=== PATIENT | female | born 1935 | race Caucasian/White ===

== ENCOUNTER 2018-04-09 16:38 | Observation (INO) | payer OTHER ==
--- NOTE | 2018-04-09 16:59 | RAD REPORT ---
EXAM DESCRIPTION: CT - Head Brain Wo Cont - 04/09/2018 4:51 pm CLINICAL HISTORY: Fall, head injury COMPARISON: None. TECHNIQUE: Axial 5 mm thick images of the head were obtained without IV contrast. All CT scans are performed using dose optimization technique as appropriate and may include automated exposure control or mA/KV adjustment according to patient size. FINDINGS: No intracranial hemorrhage, mass, edema or shift of mid-line structures. No acute infarcti on changes seen. Atrophy and chronic ischemic changes are present mild for age. Ventricles are in pro portion. Arterial and physiologic calcifications are present. Mastoid air cells and visualized portions of the paranasal sinuses are clear. No acute bony findings. IMPRESSION: Negative non-contrast CT head examination for acute finding. Mild atrophy and chronic i schemic changes are present.
--- NOTE | 2018-04-09 17:14 | RAD REPORT ---
EXAM DESCRIPTION: RAD - Chest Single View - 04/09/2018 5:01 pm CLINICAL HISTORY: Difficulty breathing, transient alteration of awareness, cough COMPARISON: February 2009 TECHNIQUE: AP portable chest image was obtained 1659 hour . FINDINGS: Fibrotic changes are present throughout the lung almeida. Interstitial pattern is increased from the prior study. This is a long interval and could be progressive fibrosis or a minimal interst itial edema or infiltrate. No focal area of consolidation to localize a bacterial pneumonia. Heart and vasculature are normal. No measurable pleural effusion and no pneumothorax. No acute bony abnormality seen. No acute aortic findings suspected. IMPRESSION: Prominent interstitial markings throughout the lung almeida increased in prominence since the remote 2008 comparison. Interval change may be progressive fibrosis or could indicate an interstitial edema or infiltrate. No focal consolidation to indicate bacterial pneumonia.
[2018-04-09 17:26] LABS: Protime INR 0.98
[2018-04-09 17:33] LABS: Absolute Lymphocytes (CBC) 3.1 K/uL (0.7-4.9); Absolute Monocytes 0.7 K/uL (0.1-1.3); Absolute Neutrophil 6.4 K/uL (1.8-8.0); Basophils % 0.5 % (0-1.3); Eosinophils % 3.2 % (0-4.4); Hematocrit 41.6 % (36.0-45.0); Lymphocytes % 29.3 % (15.3-44.8); MPV 7.9 fL (7.6-11.3); Monocytes % 6.8 % (3.3-12.3); RBC Red Blood Cell Count 4.85 M/uL (3.86-4.86)
[2018-04-09 17:37] LABS: ALT/SGPT 21 U/L (12-78); AST/SGOT 65 U/L (15-37); Albumin 3.8 g/dL (3.4-5.0); Alkaline Phosphatase 78 U/L (45-117); BUN Blood Urea Nitrogen 11 mg/dL (7-18); Bicarbonate 30 mmol/L (21-32); Bilirubin Direct 0.1 mg/dL (0-0.2); Bilirubin Total 0.4 mg/dL (0.2-1.0); Glucose Level 112 mg/dL (74-106); Magnesium 2.5 mg/dL (1.8-2.4); NT PRO-BNP 84 pg/mL (<450); Potassium 3.5 mmol/L (3.5-5.1); Protein, Total 8.4 g/dL (6.4-8.2); Sodium Level 140 mmol/L (136-145); Troponin (Emerg Dept Use Only) < 0.02 ng/mL (0.0-0.045)
--- NOTE | 2018-04-09 18:40 | ER ---
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 Care prior to arrival: None. Mechanism of Injury: Fall from standing position. Trauma event details: Injury occurred in the [facility]. 16:35 Acuity: KAYLIN 2 tw2 16:35 Method Of Arrival: Wheelchair tw2 16:35 Transition of care: patient was not received from another setting of care. Onset of tw2 symptoms was April 09, 2018. Risk Assessment: Do you want to hurt yourself or someone else? Patient reports no desire to harm self or others. Initial Sepsis Screen: Does the patient meet any 2 criteria? No. Patient's initial sepsis screen is negative. Does the patient have a suspected source of infection? No. Patient's initial sepsis screen is negative. Note provider ALAYNA Mayers at bedside at this time. Triage Assessment: 16:41 General: Appears in no apparent distress. Behavior is cooperative. Pain: Complains of tw2 pain in forehead, right cheek and chin. Neuro: Level of Consciousness is awake, alert, obeys commands, Oriented to person, repeats "so what happened, where was i". Trauma Activation: Alert Physician: ED Physician; Name: ; Notified At: ; Arrived At: Physician: General Surgeon; Name: ; Notified At: ; Arrived At: Physician: Radiology; Name: ; Notified At: ; Arrived At: Physician: Respiratory; Name: ; Notified At: ; Arrived At: Physician: Lab; Name: ; Notified At: ; Arrived At: Historical: - Allergies: 17:24 Unable to obtain; tw2 - Home Meds: 17:24 Unable to obtain [Active]; tw2 - PMHx: 17:24 Unable to obtain; tw2 - PSHx: 17:24 Unable to obtain; tw2 - Immunization history:: Adult Immunizations. - Social history:: Smoking status: . - Ebola Screening: : Patient denies travel to an Ebola-affected area in the 21 days before illness onset. Screenin:47 Abuse screen: Denies threats or abuse. Nutritional screening: No deficits noted. tw2 Tuberculosis screening: No symptoms or risk factors identified. Fall Risk None identified. Primary Survey: 16:35 NO uncontrolled hemorrhage observed. A: The patient is alert. Airway: patent. tw2 Breathing/Chest: Respiratory pattern: regular, Respiratory effort: spontaneous, unlabored. Circulation: Heart tones present. Disability Alert. Exposure/Environment: A warming method has been applied: A warm blanket has been provided to the patient. pt is confused, knows her name and where she is, gave a primary care doctors name that several years ago, and keeps repeating "what happened". 17:35 Reassessment Airway Airway Patent Breathing/Chest Respiratory pattern Regular tw2 Respiratory effort Spontaneous Unlabored Breath sounds Clear Chest inspection Symmetrical Circulation Heart tones Present Disability Alert. Secondary Survey: 17:00 HEENT: Face No injury/deformity Eyes: Edema noted right eye and chin and right cheek. tw2 Gastrointestinal: Abdomen is soft, Bowel sounds present in all quadrants. : No signs and/or symptoms were reported regarding the genitourinary system. Musculoskeletal: Circulation, motion, and sensation intact. Range of motion: intact in all extremities. Injury Description: Laceration sustained to right eye and chin and right cheek and forehead. Assessment: 17:21 General: Appears in no apparent distress. Behavior is calm, cooperative, appropriate tw2 for age. Pain: Complains of pain in face. Neuro: Level of Consciousness is awake, alert, obeys commands, Oriented to person, place. Cardiovascular: Heart tones S1 S2 Patient's skin is warm and dry. Respiratory: Airway is patent Respiratory effort is even, unlabored, Respiratory pattern is regular, symmetrical, Breath sounds are clear bilaterally. GI: No signs and/or symptoms were reported involving the gastrointestinal system. Abdomen is flat, Bowel sounds present X 4 quads. : No signs and/or symptoms were reported regarding the genitourinary system. EENT: No signs and/or symptoms were reported regarding the EENT system. Derm: Wound noted right eye and chin swelling noted to right cheek and chin. Musculoskeletal: Range of motion: intact in all extremities. 18:40 Reassessment: Patient appears in no apparent distress at this time. Patient and/or tw2 family updated on plan of care and expected duration. Pain level reassessed. Patient is alert, oriented x 3, equal unlabored respirations, skin warm/dry/pink. pt is responding appropriately at this time and not repeating things like before. Vital Signs: 16:40 BP 176 / 88; Pulse 97; Resp 18; Temp 97.9(O); Pulse Ox 99% on R/A; tw2 17:45 BP 168 / 68; Pulse 79; Resp 19 S; Pulse Ox 98% on R/A; rv 18:13 BP 164 / 86; Pulse 85; Resp 17 S; Pulse Ox 99% on R/A; rv 22:10 BP 157 / 77; Pulse 78; Resp 18; Pulse Ox 99% on R/A; rv [place] Coma Score: 16:40 Eye Response: spontaneous(4). Verbal Response: confused(4). Motor Response: obeys tw2 commands(6). Total: 14. Trauma Score (Adult): 16:40 Eye Response: spontaneous(1); Verbal Response: confused(1); Motor Response: obeys tw2 commands(2); Systolic BP: > 89 mm Hg(4); Respiratory Rate: 10 to 29 per min(4); Miguel Score: 14; Trauma Score: 12 ED Course: 16:36 Placed in gown. Bed in low position. conveyor monitor on. Pulse ox on. NIBP on. tw2 16:38 Patient arrived in ED. tw2 16:40 Triage completed. tw2 16:42 Arm band placed on. tw2 16:43 [facility] jr8 16:43 Kenny Delatorre MD is Attending Physician. jr8 16:52 CT Head Brain wo Cont In Process Unspecified. EDMS 16:54 Patient maintains SpO2 saturation greater than 95% on room air. tw2 17:00 Inserted saline lock: 20 gauge in left antecubital area, using aseptic technique. Blood rv collected. 17:00 Initial lab(s) drawn, by me, sent to lab. rv 17:02 XRAY Chest (1 view) In Process Unspecified. EDMS 17:23 Thermoregulation: warm blanket given to patient. tw2 18:38 Cortney Rose MD is Hospitalizing Provider. jr8 18:39 Amy Short, RN is Primary Nurse. tw2 22:10 No provider procedures requiring assistance completed. Patient admitted, IV remains in rv place. intact. Administered Medications: No medications were administered Intake: 18:37 PO: 0ml; Total: 0ml. tw2 Outcome: 18:36 Patient's length of stay in the Emergency Department was greater than 2 hours. pts tw2 condition and imaging, sutures still pendingPatient's length of stay extended due to 18:39 Decision to Hospitalize by Provider. jr8 22:11 Admitted to Med/surg accompanied by nurse, via wheelchair, room 204, with chart, Report rv called to REMI ROSENTHAL 22:11 Condition: good 22:11 Instructed on the need for admit. 22:12 Patient left the ED. rv Signatures: Dispatcher [employer] EDMS Roger Gibson PA PA jr8 Amy Short, RN RN tw2 Garry Porras RN RN rv Corrections: (The following items were deleted from the chart) 17:59 17:21 Derm: swelling noted to right cheek and chin tw2 rv
--- NOTE | 2018-04-09 18:40 | EDPHYS ---
Physician Documentation [facility] Name: Jess Holman Age: 83 yrs Sex: Female : 1935 Arrival Date: 04/09/2018 Time: 16:38 Bed 28 Private MD: ED Physician Kenny Delatorre HPI: 04/09 16:51 This 83 yrs old Female presents to ER via Wheelchair with complaints of Fall jr8 Injury. 16:51 Details of fall: The patient fell from an upright position, while standing. Onset: The jr8 symptoms/episode began/occurred acutely, today. Associated injuries: The patient sustained injury to the head. Severity of symptoms: At their worst the symptoms were moderate, in the emergency department the symptoms are unchanged. The patient has not experienced similar symptoms in the past. It is unknown whether or not the patient has recently seen a physician. 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 Was walking and tripped falling face first onto ground. Unknown LOC. Patient confused and with repetitive questioning . Historical: - Allergies: 17:24 Unable to obtain; tw2 - Home Meds: 17:24 Unable to obtain [Active]; tw2 - PMHx: 17:24 Unable to obtain; tw2 - PSHx: 17:24 Unable to obtain; tw2 - Immunization history:: Adult Immunizations. - Social history:: Smoking status: . - Ebola Screening: : Patient denies travel to an Ebola-affected area in the 21 days before illness onset. ROS: 16:51 Eyes: Negative for injury, pain, redness, and discharge, ENT: Negative for injury, jr8 pain, and discharge, Neck: Negative for injury, pain, and swelling, Cardiovascular: Negative for chest pain, palpitations, and edema, Respiratory: Negative for shortness of breath, cough, wheezing, and pleuritic chest pain, Abdomen/GI: Negative for abdominal pain, nausea, vomiting, diarrhea, and constipation, Back: Negative for injury and pain, MS/Extremity: Negative for injury and deformity. 16:51 Skin: Positive for laceration(s). 16:51 Neuro: Positive for altered mental status, headache. Exam: 16:51 Eyes: Pupils equal round and reactive to light, extra-ocular motions intact. Lids and jr8 lashes normal. Conjunctiva and sclera are non-icteric and not injected. Cornea within normal limits. Periorbital areas with no swelling, redness, or edema. ENT: Nares patent. No nasal discharge, no septal abnormalities noted. Tympanic membranes are normal and external auditory canals are clear. Oropharynx with no redness, swelling, or masses, exudates, or evidence of obstruction, uvula midline. Mucous membranes moist. Neck: Trachea midline, no thyromegaly or masses palpated, and no cervical lymphadenopathy. Supple, full range of motion without nuchal rigidity, or vertebral point tenderness. No Meningismus. Chest/axilla: Normal chest wall appearance and motion. Nontender with no deformity. No lesions are appreciated. Cardiovascular: Regular rate and rhythm with a normal S1 and S2. No gallops, murmurs, or rubs. Normal PMI, no JVD. No pulse deficits. Respiratory: Lungs have equal breath sounds bilaterally, clear to auscultation and percussion. No rales, rhonchi or wheezes noted. No increased work of breathing, no retractions or nasal flaring. Abdomen/GI: Soft, non-tender, with normal bowel sounds. No distension or tympany. No guarding or rebound. No evidence of tenderness throughout. Back: No spinal tenderness. No costovertebral tenderness. Full range of motion. Skin: Warm, dry with normal turgor. Normal color with no rashes, no lesions, and no evidence of cellulitis. MS/ Extremity: Pulses equal, no cyanosis. Neurovascular intact. Full, normal range of motion. 16:51 Head/face: Noted is ecchymosis, that is mild, of the right eye, a laceration(s), that is deep, that is linear, of the right lateral supraorbital region and right mental region. 16:51 Neuro: Orientation: to person, place, Mentation: able to follow commands, confused, Memory: immediate memory is intact, remote memory is impaired, recent memory is impaired, Cranial nerves: CN I not tested, CN II- XII are normal as tested, visual almeida are intact. extraocular movements are intact, Facial palsy and sensory deficits are absent. Speech is clear and appropriate. Tongue strength is normal, Cerebellar function: is grossly normal, Motor: moves all fours, strength is 5/5 in all extremities, Sensation: no obvious gross deficits, seizure activity, is not displayed by the patient, Abnormal movements: there are no abnormal movements. Vital Signs: 16:40 BP 176 / 88; Pulse 97; Resp 18; Temp 97.9(O); Pulse Ox 99% on R/A; tw2 17:45 BP 168 / 68; Pulse 79; Resp 19 S; Pulse Ox 98% on R/A; rv 18:13 BP 164 / 86; Pulse 85; Resp 17 S; Pulse Ox 99% on R/A; rv 22:10 BP 157 / 77; Pulse 78; Resp 18; Pulse Ox 99% on R/A; rv [place] Coma Score: 16:40 Eye Response: spontaneous(4). Verbal Response: confused(4). Motor Response: obeys tw2 commands(6). Total: 14. Trauma Score (Adult): 16:40 Eye Response: spontaneous(1); Verbal Response: confused(1); Motor Response: obeys tw2 commands(2); Systolic BP: > 89 mm Hg(4); Respiratory Rate: 10 to 29 per min(4); Miguel Score: 14; Trauma Score: 12 Laceration: 21:24 Wound Repair of 4cm ( 1.6in ) subcutaneous laceration to face. Linear shaped.. Minimal jr8 bleeding noted.. Distal neuro/vascular/tendon intact. Anesthesia: Local anesthetic administered with 3 mls of 1% lidocaine. Wound prep: Extensive cleansing with betadine, Wound irrigation with saline, Wound explored extensively. Skin closed with 5 6-0 Prolene using interrupted sutures and sterile technique. Patient tolerated well. 21:24 Wound Repair of 2cm ( 0.8in ) subcutaneous laceration to chin. Linear shaped.. Minimal jr8 bleeding noted.. Distal neuro/vascular/tendon intact. Anesthesia: Local anesthetic administered with 2 mls of 1% lidocaine. Wound prep: Extensive cleansing with betadine, Wound irrigation with saline, Wound explored extensively. Skin closed with 3 6-0 Prolene using interrupted sutures and sterile technique. Patient tolerated well. MDM: 16:43 Patient medically screened. jr8 18:37 Data reviewed: vital signs, nurses notes, lab test result(s), EKG, radiologic studies, jr8 CT scan, plain films, and as a result, I will admit patient. Data interpreted: Pulse oximetry: on room air is 99 %. Interpretation: normal. Counseling: I had a detailed discussion with the patient and/or guardian regarding: the historical points, exam findings, and any diagnostic results supporting the discharge/admit diagnosis, lab results, radiology results, the need for further work-up and treatment in the hospital. ED course: Patient doing much better. No amnesia now. Mild pain to side of head. Will be admitted for obs due to TBI. 04/09 16:44 Order name: Basic Metabolic Panel; Complete Time: 17:45 04/09 16:44 Order name: CBC with Diff; Complete Time: 17:45 04/09 16:44 Order name: LFT's; Complete Time: 17:45 04/09 16:44 Order name: Magnesium; Complete Time: 17:45 04/09 16:44 Order name: NT PRO-BNP; Complete Time: 17:45 04/09 16:44 Order name: PT-INR; Complete Time: 17:45 04/09 16:44 Order name: Troponin (emerg Dept Use Only); Complete Time: 17:45 04/09 16:44 Order name: XRAY Chest (1 view); Complete Time: 17:45 04/09 16:44 Order name: EKG; Complete Time: 16:45 04/09 16:44 Order name: Cardiac monitoring; Complete Time: 16:54 04/09 16:44 Order name: EKG - Nurse/Tech; Complete Time: 18:02 04/09 16:44 Order name: IV Saline Lock; Complete Time: 17:32 04/09 16:44 Order name: CT Head Brain wo Cont; Complete Time: 17:45 04/09 16:44 Order name: Labs collected and sent; Complete Time: 17:33 04/09 16:44 Order name: O2 Per Protocol; Complete Time: 16:54 04/09 16:44 Order name: O2 Sat Monitoring; Complete Time: 16:54 04/09 18:40 Order name: Prolene, Sutures; Complete Time: 18:41 04/09 18:40 Order name: Gloves, Sterile; Complete Time: 18:41 04/09 18:40 Order name: Setup Suture Tray; Complete Time: 18:41 Administered Medications: No medications were administered Disposition: 04/10 06:42 Co-signature as Attending Physician, Kenny Delatorre MD I agree with the assessment and kdr plan of care. Disposition: 04/09/18 18:39 Hospitalization ordered by Cortney Rose for Observation. 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 - Bed requested for Telemetry/MedSurg (observation). - Status is Observation. rv - Condition is Stable. - Problem is new. - Symptoms have improved. UTI on Admission? No Signatures: Dispatcher [employer] EDDemetria Oliver, RN RN dw Kenny Delatorre MD MD [facility] Roger Gibson PA PA jr8 Amy Short, RN RN tw2 Garry Porras, RN RN rv Corrections: (The following items were deleted from the chart) 04/09 19:27 18:39 Hospitalization Ordered by Cortney Rose MD for Observation. Preliminary diagnosis dw is Concussion without loss of consciousness; Diffuse traumatic brain injury without loss of consciousness. Bed requested for Telemetry/MedSurg (observation). Status is Observation. Condition is Stable. Problem is new. Symptoms have improved. UTI on Admission? No. jr8 22:12 19:27 04/09/2018 18:39 Hospitalization Ordered by Cortney Rose MD for Observation. rv Preliminary diagnosis is Concussion without loss of consciousness; Diffuse traumatic brain injury without loss of consciousness. Bed requested for Telemetry/MedSurg (observation). Status is Observation. Condition is Stable. Problem is new. Symptoms have improved. UTI on Admission? No. dw
[2018-04-09] MEDS ORDERED: LIDOCAINE 1% MPF 2 ML AMPULE ONE (18:51)
--- NOTE | 2018-04-09 19:12 | P.HP ---
Certification for Inpatient Patient admitted to: Observation With expected LOS: <2 Midnights Practitioner: I am a practitioner with admitting privileges, knowledge of patient current condition, hospital course, and medical plan of care. Services: Services provided to patient in accordance with Admission requirements found in Title 42 Section 412.3 of the Code of Federal Regulations Patient History Date of Service: 04/10/18 Reason for admission: Mechanical fall History of Present Illness: This is an 83-year-old female with no past medical history admitted for observation after a fall here in the hospital. 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 The code was called, and patient was then taken to the ER by wheelchair. Per patient, she did not remember anything for lower, then she started remembering everything. She did sustain facial injuries from the fall, imaging done in the ER was negative for any acute fractures or bleeds. She did require stitches to Open the right part of the chin as well as next to her right eye. At the time of my exam, patient was alert oriented x3, in no acute distress and pain was well controlled. Allergies No Known Allergies Allergy (Verified 04/09/18 22:15) Home Medications: Alendronate Sodium [Fosamax] 1 tab PO EVERY 7TH DAY 04/09/18 Ascorbic Acid [Vitamin C*] 1 tab PO DAILY 04/09/18 Aspirin [Low Dose Aspirin EC] 1 tab PO DAILY 04/09/18 B12/Levomefolate Calcium/B-6 [Foltx Tablet] 1 tab PO DAILY 04/09/18 Calcium Carbonate [Calcium] 1 tab PO DAILY 04/09/18 Cholecalciferol (Vitamin D3) [Vitamin D 1000 Iu Tab*] 1 tab PO DAILY 04/09/18 Fluticasone [Flonase 50MCG Nasal [place]*] 1 spray IN DAILY PRN 04/09/18 Magnesium [Magnesium Gluconate] 400 mg PO DAILY 04/09/18 [place]-3/Dha/Epa/Fish Oil [[place] 3 500 Softgel] 1 cap PO DAILY 04/09/18 Review of Systems 10-point ROS is otherwise unremarkable Physical Examination - Physical Exam General: Alert, In no apparent distress, Oriented x3 HEENT: PERRLA, Mucous membr. moist/pink, Other (Black right eye, laceration next to right eye and below right-sided chin. No bleeding or discharge noted), EOMI, Sclerae nonicteric Neck: Supple, 2+ carotid pulse no bruit, No LAD, Without JVD or thyroid abnormality Respiratory: Clear to auscultation bilaterally, Normal air movement Cardiovascular: Regular rate/rhythm, Normal S1 S2 Gastrointestinal: Normal bowel sounds, No tenderness Musculoskeletal: No tenderness Integumentary: No rashes Neurological: Normal gait, Normal speech, Normal strength at 5/5 x4 extr, Normal tone, Normal affect Lymphatics: No axilla or inguinal lymphadenopathy - Studies Laboratory Data (last 24 hrs) 04/09/18 17:00: PT 11.6, INR 0.98 04/09/18 17:00: WBC 10.6, Hgb 13.5, Hct 41.6, Plt Count 252 04/09/18 17:00: Sodium 140, Potassium 3.5, BUN 11, Creatinine 0.75, Glucose 112 H, Magnesium 2.5 H, Total Bilirubin 0.4, AST 65 H, ALT 21, Alkaline Phosphatase 78 Assessment and Plan - Problems (Diagnosis) (1) Injury due to fall Current Visit: Yes Status: Acute Qualifiers: Encounter type: initial encounter Qualified Code(s): W19.XXXA - Unspecified fall, initial encounter (2) Fall Current Visit: Yes Status: Acute Qualifiers: Encounter type: initial encounter Qualified Code(s): W19.XXXA - Unspecified fall, initial encounter - Plan This is an 82-year-old female with: Fall (Acute) W19.XXXA Injury due to fall Admit to floor overnight for observation. Monitor neurological status Hemodynamically stable, monitor DVT prophylaxis: None, not needed GI prophylaxis: None Diet: Regular Disposition: Admit overnight for observation. Will discharge home in the morning if neurological is stable and asymptomatic. Discharge Plan: Home Plan to discharge in: 24 Hours - Advance Directives Does patient have a Living Will: No Does patient have a Durable POA for Healthcare: No Time Spent Managing Pts Care (In Minutes): 55
[2018-04-09] MEDS ORDERED: ONDANSETRON 4 MG/2 ML VIAL IV PRN (22:11)
[2018-04-09] MEDS ORDERED: ACETAMINOPHEN 500 MG TAB PO PRN (22:11)
[2018-04-10 05:29] LABS: Urine Appearance CLEAR; Urine Bilirubin NEGATIVE (NEG); Urine Blood NEGATIVE (NEG); Urine Color YELLOW; Urine Glucose NEGATIVE (NEG); Urine Protein NEGATIVE (NEG); Urine Urobilinogen 0.2 mg/dL (0.2-1.0); Urine pH 7.5 (5.0-7.0)
[2018-04-10 05:43] LABS: Absolute Lymphocytes (CBC) 1.8 K/uL (0.7-4.9); Absolute Monocytes 0.8 K/uL (0.1-1.3); Basophils % 0.3 % (0-1.3); Eosinophils % 1.9 % (0-4.4); Hematocrit 38.5 % (36.0-45.0); Lymphocytes % 18.7 % (15.3-44.8); MPV 7.6 fL (7.6-11.3); Monocytes % 7.8 % (3.3-12.3); RBC Red Blood Cell Count 4.55 M/uL (3.86-4.86)
[2018-04-10 05:47] LABS: Urine Microscopic Reflex NO UMIC
[2018-04-10 05:56] LABS: Magnesium 2.3 mg/dL (1.8-2.4); Phosphorus 3.9 mg/dL (2.5-4.9); Potassium 3.8 mmol/L (3.5-5.1)
[2018-04-10] MEDS ORDERED: POTASSIUM 25 MEQ EFFERV TAB PO ONE (07:00)
--- NOTE | 2018-04-10 07:01 | EKG ---
Test Date: 2018-04-09 Test Time: 17:44:30 Residential Housekeeper: [employer] MEASUREMENT RESULTS: Intervals: Rate: 80 SD: 134 QRSD: 76 QT: 382 QTc: 440 [place]: P: 70 SD: 134 QRS: 70 T: 66 INTERPRETIVE STATEMENTS: Normal sinus rhythm Normal ECG Compared to ECG 02/17/2009 08:46:01 No significant changes Electronically Signed On 04-10-18 06:53:24 [employer] FIELD PIPELINE SUPERVISOR by Kyle Abdi
[2018-04-10] MEDS ORDERED: CALCIUM CARBONATE 500 MG TAB PO SCH (09:00)
[2018-04-10] MEDS ORDERED: FOLBIC 1 TAB PO SCH (09:00)
[2018-04-10] MEDS ORDERED: ASPIRIN EC 81 MG TAB PO SCH (09:00)
[2018-04-10] MEDS ORDERED: VITAMIN D 1000 UNIT TAB PO SCH (09:00)
[2018-04-10] MEDS ORDERED: ALENDRONATE 70 MG TAB PO SCH (09:00)
[2018-04-10] MEDS ORDERED: ASCORBIC ACID 500 MG TABLET PO SCH (09:00)
[2018-04-10] MEDS ORDERED: MAGNESIUM OXIDE 400 MG TAB PO SCH (09:00)
[2018-04-10] MEDS ORDERED: HOME MED 1 EA UNK (Omega-3/Dha/Epa/Fish Oil [Omega 3 500 Softgel] 1 CAP) PO SCH (09:00)
--- NOTE | 2018-04-10 10:34 | P.SSS ---
Patient History Date of Service: 04/10/18 Reason for admission: Mechanical fall History of Present Illness: This is an 83-year-old female with no past medical history admitted for observation after a fall here in the hospital. 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 The code was called, and patient was then taken to the ER by wheelchair. Per patient, she did not remember anything for lower, then she started remembering everything. She did sustain facial injuries from the fall, imaging done in the ER was negative for any acute fractures or bleeds. She did require stitches to Open the right part of the chin as well as next to her right eye. At the time of my exam, patient was alert oriented x3, in no acute distress and pain was well controlled. Allergies No Known Allergies Allergy (Verified 04/09/18 22:15) Home Medications: RX: Alendronate Sodium [Fosamax] 1 tab PO EVERY 7TH DAY 04/09/18 RX: Ascorbic Acid [Vitamin C*] 1 tab PO DAILY 04/09/18 RX: Aspirin [Low Dose Aspirin EC] 1 tab PO DAILY 04/09/18 RX: B12/Levomefolate Calcium/B-6 [Foltx Tablet] 1 tab PO DAILY 04/09/18 RX: Calcium Carbonate [Calcium] 1 tab PO DAILY 04/09/18 RX: Cholecalciferol (Vitamin D3) [Vitamin D 1000 Iu Tab*] 1 tab PO DAILY RX: Fluticasone [Flonase 50MCG Nasal [place]*] 1 spray IN DAILY PRN 04/09/18 RX: Magnesium [Magnesium Gluconate] 400 mg PO DAILY 04/09/18 RX: [place]-3/Dha/Epa/Fish Oil [[place] 3 500 Softgel] 1 cap PO DAILY 04/09/18 - Past Medical/Surgical History Has patient received pneumonia vaccine in the past: Yes Diabetic: No -: seasonal hayfever -: knee cartilege repair left 1992 -: knee cartilege repair right 1997 -: right wrist broken 2008 plate with 10 screws -: 04/2012 right eye cataract -: 05/2012 left eye cataract - Social History Smoking Status: Never smoker Alcohol use: No CD- Drugs: No Caffeine use: Yes Place of Residence: Home Review of Systems 10-point ROS is otherwise unremarkable Physical Examination - Vital Signs Temperature: 98.3 F Blood Pressure: 147/70 Pulse: 97 Respirations: 18 Pulse Ox (%): 95 - Physical Exam General: Alert, In no apparent distress, Oriented x3 HEENT: Atraumatic, PERRLA, Mucous membr. moist/pink, EOMI, Sclerae nonicteric Neck: Supple, 2+ carotid pulse no bruit, No LAD, Without JVD or thyroid abnormality Respiratory: Clear to auscultation bilaterally, Normal air movement Cardiovascular: Regular rate/rhythm, Normal S1 S2 Gastrointestinal: Normal bowel sounds, No tenderness Musculoskeletal: No tenderness Integumentary: No rashes Neurological: Normal gait, Normal speech, Normal strength at 5/5 x4 extr, Normal tone, Sensation intact, Cranial nerves 3-12 intact, Normal affect - Studies Laboratory Data (last 24 hrs) 04/09/18 17:00: PT 11.6, INR 0.98 04/09/18 17:00: WBC 10.6, Hgb 13.5, Hct 41.6, Plt Count 252 04/09/18 17:00: Sodium 140, Potassium 3.5, BUN 11, Creatinine 0.75, Glucose 112 H, Magnesium 2.5 H, Total Bilirubin 0.4, AST 65 H, ALT 21, Alkaline Phosphatase 78 - Diagnosis (Problem(s)) (1) Injury due to fall Current Visit: Yes Status: Acute Qualifiers: Encounter type: initial encounter Qualified Code(s): W19.XXXA - Unspecified fall, initial encounter (2) Fall Current Visit: Yes Status: Acute Qualifiers: Encounter type: initial encounter Qualified Code(s): W19.XXXA - Unspecified fall, initial encounter Treatment Summary: Patient was admitted to the hospital for observation after a fall that occurred in the hospital after slipping on the tonsil. Patient had retrograde amnesia for about an hr, which resolved. She also required stitches to the laceration next to her right eye as well as the bottom of the chin. She sustained a black cry from the fall. Throughout the hospitalization, she remained stable, neurologically intact. Prior to discharge, patient was asymptomatic, labs were normal, she was hemodynamically stable and she was ambulating without any concerns. She denied any dizziness, vision changes, headache, trouble reading, photo or phonophobia, GI or complaints. She was instructed on rest and taking it easy for a few days. She was instructed to return to the ER for any worsening type of symptoms. - Disposition Disposition: ROUTINE DISCHARGE Condition: GOOD Patient Discharge Instructions: Please follow up with the primary care physician in 1 week. Please return to the emergency room for worsening symptoms. Diet: Regular Activity: Ad rodríguez Time Spent Managing Pts Care (In Minutes): 45
[2018-04-12] MEDS ORDERED: ALENDRONATE 70 MG TAB PO SCH (09:00)
== END 2018-04-10 12:32 | disposition home or self-care (01) ==
LOC: ER 16:38 → ERHOLD 19:10 → 2ND 21:50
PROVIDERS: ADMIT Family Medicine; ATTEND Family Medicine
PROC: 0JQ10ZZ Repair Face Subcutaneous Tissue and Fascia, Open Approach (ICD-10-PCS; principal; 2018-04-09)
DX: S01.419A Laceration without foreign body of unspecified cheek and temporomandibular area, initial encounter (principal); S01.81XA Laceration without foreign body of other part of head, initial encounter; R41.2 Retrograde amnesia; W01.0XXA Fall on same level from slipping, tripping and stumbling without subsequent striking against object, initial encounter; Y92.239 Unspecified place in hospital as the place of occurrence of the external cause
CPT/HCPCS: 12014; 36415; 70450; 71045; 80048 ×2; 80076; 81003; 83735 ×2; 83880; 84100; 84484; 85025 ×2; 85610; 93005; 94760 ×2; 99285; G0378 ×2; J2001

== ENCOUNTER 2018-04-13 11:34 | Emergency (ER) | payer OTHER ==
[2018-04-13 12:55] LABS: Absolute Lymphocytes (CBC) 1.5 K/uL (0.7-4.9); Absolute Monocytes 0.5 K/uL (0.1-1.3); Absolute Neutrophil 7.5 K/uL (1.8-8.0); Basophils % 0.6 % (0-1.3); Eosinophils % 1.8 % (0-4.4); Hematocrit 38.7 % (36.0-45.0); Lymphocytes % 15.2 % (15.3-44.8); MPV 7.8 fL (7.6-11.3); Monocytes % 5.5 % (3.3-12.3); RBC Red Blood Cell Count 4.54 M/uL (3.86-4.86)
--- NOTE | 2018-04-13 12:58 | EKG ---
Test Date: 2018-03-13 Test Time: 12:20:49 Dryland Farmer: ERIKA MEASUREMENT RESULTS: Intervals: Rate: 72 MT: 134 QRSD: 74 QT: 394 QTc: 431 [place]: P: 72 MT: 134 QRS: 47 T: 64 INTERPRETIVE STATEMENTS: Normal sinus rhythm Low voltage QRS Borderline ECG Compared to ECG 02/17/2009 08:46:01 Low QRS voltage now present Electronically Signed On 04-13-18 12:57:53 CARDIOPULMONARY TECHNOLOGIST CHIEF by Kyle Abdi
[2018-04-13 13:06] LABS: Protime INR 1.05
[2018-04-13 13:15] LABS: ALT/SGPT 19 U/L (12-78); AST/SGOT 58 U/L (15-37); Albumin 3.6 g/dL (3.4-5.0); Alkaline Phosphatase 73 U/L (45-117); BUN Blood Urea Nitrogen 11 mg/dL (7-18); Bicarbonate 26 mmol/L (21-32); Bilirubin Direct 0.2 mg/dL (0-0.2); Bilirubin Total 0.5 mg/dL (0.2-1.0); Glucose Level 89 mg/dL (74-106); Lipase 161 U/L (73-393); Magnesium 2.1 mg/dL (1.8-2.4); NT PRO-BNP 104 pg/mL (<450); Potassium 3.9 mmol/L (3.5-5.1); Protein, Total 7.5 g/dL (6.4-8.2); Sodium Level 139 mmol/L (136-145); Troponin (Emerg Dept Use Only) < 0.02 ng/mL (0.0-0.045)
--- NOTE | 2018-04-13 13:56 | RAD REPORT ---
EXAM DESCRIPTION: RAD - Chest Single View - 04/13/2018 1:49 pm CLINICAL HISTORY: CHEST PAIN Chest pain. COMPARISON: Chest Single View dated 04/09/2018; CHEST PA AND LAT 2 VIEW dated 02/17/2009 FINDINGS: Portable technique limits examination quality. The lungs are mildly emphysematous but clear. Small right pleural effusion. The heart is normal in si ze. No displaced fractures.Aortic atherosclerosis.
--- NOTE | 2018-04-13 14:19 | RAD REPORT ---
EXAM DESCRIPTION: CT - Chest Abdomen Pelvis W Cont - 04/13/2018 2:01 pm CLINICAL HISTORY: Chest and abdomen pain. CHEST PAIN COMPARISON: No comparisons TECHNIQUE: Approximately 100 mL nonionic IV contrast was administered to the patient. All CT scans are performed using dose optimization technique as appropriate and may include automated exposure control or mA/KV adjustment according to patient size. FINDINGS: Mild areas of tree-in-bud opacity are present in the lingula, right middle lobe and manager chemistry ior right upper lobe likely representing mild atypical infection.No pleural or pericardial effusion.N o intrathoracic adenopathy. The liver, spleen, pancreas, adrenal glands and kidneys are within normal limits. No bowel obstruction, free air, free fluid or abscess. Normal appendix. Advanced sigmoid diverticulos is coli is present without diverticulitis. No pathologic lymphadenopathy in the abdomen or pelvis. No displaced fracture seen. No aggressive marrow lesion. IMPRESSION: Areas of tree-in-bud opacity in both lungs likely represent atypical infection such as M AI. Advanced sigmoid diverticulosis without diverticulitis. No fracture or aggressive bone lesion identified.
--- NOTE | 2018-04-13 16:15 | ER ---
Nurse's Notes [facility] Name: Jess Holman Age: 83 yrs Sex: Female : 1935 Arrival Date: 04/13/2018 Time: 11:37 Bed 13 Private MD: Diagnosis: Other chest pain;Fall due to bumping against object;Contusion of front wall of thorax;Acute upper respiratory infection, unspecified Presentation: 04/13 11:49 Presenting complaint: Patient states: Left sternum pain, left anterior chest wall pain, sg reports having had the pain during hospitalization but this morning the pain and severity has increased, denies SOB, chest congestion or cough, no other trauma reported. Transition of care: patient was not received from another setting of care. Onset of symptoms was April 13, 2018. Risk Assessment: Do you want to hurt yourself or someone else? Patient reports no desire to harm self or others. Initial Sepsis Screen: Does the patient meet any 2 criteria? No. Patient's initial sepsis screen is negative. Does the patient have a suspected source of infection? No. Patient's initial sepsis screen is negative. Care prior to arrival: None. 11:49 Method Of Arrival: Ambulatory 11:49 Acuity: KAYLIN 3 sg Historical: - Allergies: 11:52 Unable to obtain; sg - PSHx: 11:52 Unable to obtain; sg - Immunization history:: Adult Immunizations unknown. - Family history:: not pertinent. - Social history:: Smoking status: Patient/guardian denies using tobacco. - Ebola Screening: : No symptoms or risks identified at this time. Screenin:44 Abuse screen: Denies threats or abuse. Denies injuries from another. Nutritional ph screening: No deficits noted. Tuberculosis screening: Fall Risk Fall in past 12 months (25 points). No secondary diagnosis (0 pts). IV access (20 points). Ambulatory Aid- None/Bed Rest/Nurse Assist (0 pts). Gait- Normal/Bed Rest/Wheelchair (0 pts) Mental Status- Oriented to own ability (0 pts). Total Palacio Fall Scale indicates High Risk Score (45 or more points). Fall prevention measures have been instituted. Side Rails Up X 2 Frequent Obs/Assessments Occuring As available patient and family educated on Fall Prevention Program and Strategies. Assessment: 12:30 General: Appears in no apparent distress. comfortable, slender, well groomed, Behavior ph is calm, cooperative, appropriate for age. Pain: Complains of pain in anterior aspect of left upper chest Pain does not radiate. Pain Pain began 2-3 days ago. Neuro: Level of Consciousness is awake, alert, obeys commands, Oriented to person, place, time, situation. Cardiovascular: Reports chest pain, Denies lightheadedness, nausea, palpitations, shortness of breath, Capillary refill < 3 seconds in bilateral fingers Patient's skin is warm and dry. Chest pain is located in left anterior chest wall. Respiratory: Airway is patent Respiratory effort is even, unlabored, Respiratory pattern is regular, symmetrical. Derm: Skin is healthy with good turgor, Skin is pink, warm \T\ dry. Musculoskeletal: Circulation, motion, and sensation intact. Range of motion: intact in all extremities. 13:30 Reassessment: Patient appears in no apparent distress at this time. Patient and/or ph family updated on plan of care and expected duration. Pain level reassessed. Patient is alert, oriented x 3, equal unlabored respirations, skin warm/dry/pink. 14:50 Reassessment: Patient appears in no apparent distress at this time. Patient and/or ph family updated on plan of care and expected duration. Pain level reassessed. Patient is alert, oriented x 3, equal unlabored respirations, skin warm/dry/pink. Pt resting quietly, awaiting lab and CT results. Vital Signs: 11:51 BP 191 / 99; Pulse 86; Resp 19; Temp 97.3; Pulse Ox 98% on R/A; Pain 6/10; sg 12:30 BP 187 / 83; Pulse 74; Resp 18; Pulse Ox 95% on R/A; ph 14:00 BP 164 / 78; Pulse 91; Resp 18; Pulse Ox 98% on R/A; ph 15:00 BP 154 / 82; Pulse 87; Resp 20; Pulse Ox 98% on R/A; ph 15:58 BP 145 / 64; Pulse 88; Resp 16; Pulse Ox 97% on R/A; ph ED Course: 11:37 Patient arrived in ED. as 11:50 Triage completed. sg 11:51 Arm band placed on. sg 12:05 Maya Wall RN is Primary Nurse. ph 12:17 Zane Young MD is Attending Physician. branden 12:45 Inserted saline lock: 20 gauge in right antecubital area, using aseptic technique. ms 12:47 EKG done, by field service tech. reviewed by Zane Young MD. at1 13:53 XRAY Chest (1 view) In Process Unspecified. EDMS 14:15 CT Chest, Abdomen, Pelvis - W/Contrast: iv only In Process Unspecified. EDMS 14:44 Patient has correct armband on for positive identification. Placed in gown. Bed in low ph position. Call light in reach. Side rails up X2. color television console monitor on. Pulse ox on. NIBP on. Warm blanket given. 14:45 Patient maintains SpO2 saturation greater than 95% on room air. ph 14:45 No provider procedures requiring assistance completed. ph 16:16 Venkat Mead MD is Referral Physician. branden 16:35 First set of blood cultures drawn. ms 16:50 IV discontinued, intact, bleeding controlled, No redness/swelling at site. Pressure hb dressing applied. Administered Medications: 16:42 Drug: Zithromax 500 mg Route: PO; hb 16:49 Follow up: Response: Medication administered at discharge. hb Outcome: 16:15 Discharge ordered by . branden 16:50 Discharged to home ambulatory. hb 16:50 Condition: stable 16:50 Discharge instructions given to patient, Instructed on discharge instructions, follow up and referral plans. medication usage, Demonstrated understanding of instructions, follow-up care, medications, Prescriptions given X 2. 16:51 Patient left the ED. hb Signatures: Dispatcher [employer] EDMS Bao Barreto, Zane Felipe RN, MD MD cha Martinez, Amelia as Solis, Maria ms Avery Melvina, databases computer consultant EKG Tat1 Maya Wall RN RN ph Baxter, Heather, ARIADNA RN hb
--- NOTE | 2018-04-13 16:16 | EDPHYS ---
Physician Documentation [facility] Name: Jess Holman Age: 83 yrs Sex: Female : 1935 Arrival Date: 04/13/2018 Time: 11:37 Bed 13 Private MD: ED Physician Zane Young HPI: 04/13 13:30 This 83 yrs old Female presents to ER via Ambulatory with complaints of Chest branden Wall Pain, Back Pain. 13:30 The patient or guardian reports chest pain that is located primarily in the anterior branden chest wall, bilaterally. Onset: 1 day(s) ago. The pain does not radiate. Associated signs and symptoms: The patient has no apparent associated signs or symptoms. The chest pain is described as dull. Modifying factors: The symptoms are alleviated by remaining still, the symptoms are aggravated by movement, palpation of area, twisting torso, walking. Severity of pain: At its worst the pain was mild moderate in the emergency department the pain is unchanged. The patient has not experienced similar symptoms in the past. Historical: - Allergies: 11:52 Unable to obtain; sg - PSHx: :52 Unable to obtain; sg - Immunization history:: Adult Immunizations unknown. - Family history:: not pertinent. - Social history:: Smoking status: Patient/guardian denies using tobacco. - Ebola Screening: : No symptoms or risks identified at this time. ROS: 13:30 Constitutional: Negative for fever, chills, and weight loss, Eyes: Negative for injury, branden pain, redness, and discharge, ENT: Negative for injury, pain, and discharge, Neck: Negative for injury, pain, and swelling, Respiratory: Negative for shortness of breath, cough, wheezing, and pleuritic chest pain, Abdomen/GI: Negative for abdominal pain, nausea, vomiting, diarrhea, and constipation, Back: Negative for injury and pain, : Negative for injury, bleeding, discharge, and swelling, MS/Extremity: Negative for injury and deformity, Skin: Negative for injury, rash, and discoloration, Neuro: Negative for headache, weakness, numbness, tingling, and seizure, Psych: Negative for depression, anxiety, suicide ideation, homicidal ideation, and hallucinations, Allergy/Immunology: Negative for hives, rash, and allergies, Endocrine: Negative for neck swelling, polydipsia, polyuria, polyphagia, and marked weight changes, Hematologic/Lymphatic: Negative for swollen nodes, abnormal bleeding, and unusual bruising. 13:30 Cardiovascular: Positive for chest pain, with movement, of the chest. Exam: 13:30 Constitutional: This is a well developed, well nourished patient who is awake, alert, branden and in no acute distress. Head/Face: Normocephalic, atraumatic. Eyes: Pupils equal round and reactive to light, extra-ocular motions intact. Lids and lashes normal. Conjunctiva and sclera are non-icteric and not injected. Cornea within normal limits. Periorbital areas with no swelling, redness, or edema. ENT: Nares patent. No nasal discharge, no septal abnormalities noted. Tympanic membranes are normal and external auditory canals are clear. Oropharynx with no redness, swelling, or masses, exudates, or evidence of obstruction, uvula midline. Mucous membranes moist. Neck: Trachea midline, no thyromegaly or masses palpated, and no cervical lymphadenopathy. Supple, full range of motion without nuchal rigidity, or vertebral point tenderness. No Meningismus. Cardiovascular: Regular rate and rhythm with a normal S1 and S2. No gallops, murmurs, or rubs. Normal PMI, no JVD. No pulse deficits. Respiratory: Lungs have equal breath sounds bilaterally, clear to auscultation and percussion. No rales, rhonchi or wheezes noted. No increased work of breathing, no retractions or nasal flaring. Abdomen/GI: Soft, non-tender, with normal bowel sounds. No distension or tympany. No guarding or rebound. No evidence of tenderness throughout. Back: No spinal tenderness. No costovertebral tenderness. Full range of motion. Female : Normal external genitalia. Skin: Warm, dry with normal turgor. Normal color with no rashes, no lesions, and no evidence of cellulitis. MS/ Extremity: Pulses equal, no cyanosis. Neurovascular intact. Full, normal range of motion. Neuro: Awake and alert, GCS 15, oriented to person, place, time, and situation. Cranial nerves II-XII grossly intact. Motor strength 5/5 in all extremities. Sensory grossly intact. Cerebellar exam normal. Normal gait. Psych: Awake, alert, with orientation to person, place and time. Behavior, mood, and affect are within normal limits. 13:30 Chest/axilla: Inspection: normal, Palpation: is normal, Axilla: are normal. 13:30 Musculoskeletal/extremity: DVT Exam: No signs of deep vein thrombosis. no pain, no swelling, no tenderness, negative Homans' sign noted on exam, no appreciated bluish discoloration, no erythema, no increased warmth. Vital Signs: 11:51 BP 191 / 99; Pulse 86; Resp 19; Temp 97.3; Pulse Ox 98% on R/A; Pain 6/10; sg 12:30 BP 187 / 83; Pulse 74; Resp 18; Pulse Ox 95% on R/A; ph 14:00 BP 164 / 78; Pulse 91; Resp 18; Pulse Ox 98% on R/A; ph 15:00 BP 154 / 82; Pulse 87; Resp 20; Pulse Ox 98% on R/A; ph 15:58 BP 145 / 64; Pulse 88; Resp 16; Pulse Ox 97% on R/A; ph MDM: 12:17 Patient medically screened. [facility] 13:31 Data reviewed: vital signs, nurses notes, lab test result(s), EKG, radiologic studies, [facility] CT scan, plain films. 04/13 12:18 Order name: Basic Metabolic Panel; Complete Time: 13:28 [facility] 04/13 12:18 Order name: CBC with Diff; Complete Time: 13:28 [facility] 04/13 12:18 Order name: LFT's; Complete Time: 13:28 [facility] 04/13 12:18 Order name: Magnesium; Complete Time: 13:28 [facility] 04/13 12:18 Order name: NT PRO-BNP; Complete Time: 13:28 [facility] 04/13 12:18 Order name: PT-INR; Complete Time: 13:28 [facility] 04/13 12:18 Order name: Troponin (emerg Dept Use Only); Complete Time: 13:28 [facility] 04/13 12:18 Order name: XRAY Chest (1 view); Complete Time: 16:14 [facility] 04/13 12:18 Order name: Urine Culture [facility] 04/13 12:18 Order name: Lipase; Complete Time: 13:28 [facility] 04/13 13:29 Order name: CT Chest, Abdomen, Pelvis - W/Contrast: iv only; Complete Time: 16:14 [facility] 04/13 13:35 Order name: Troponin (emerg Dept Use Only): 200pm; Complete Time: 16:14 [facility] 04/13 14:29 Order name: Urine Dipstick--Ancillary (enter results) 04/13 16:14 Order name: Blood Culture Adult (2) [facility] 04/13 12:18 Order name: EKG; Complete Time: 12:20 [facility] 04/13 12:18 Order name: Cardiac monitoring; Complete Time: 12:42 [facility] 04/13 12:18 Order name: EKG - Nurse/Tech; Complete Time: 12:42 [facility] 04/13 12:18 Order name: IV Saline Lock; Complete Time: 12:43 [facility] 04/13 12:18 Order name: Labs collected and sent; Complete Time: 12:43 [facility] 04/13 12:18 Order name: O2 Per Protocol; Complete Time: 12:43 [facility] 04/13 12:18 Order name: O2 Sat Monitoring; Complete Time: 12:43 [facility] 04/13 12:18 Order name: Urine Dipstick-Ancillary (obtain specimen); Complete Time: 13:48 [facility] 04/13 13:35 Order name: INCENTIVE SPIROMETRY [facility] Administered Medications: 16:42 Drug: Zithromax 500 mg Route: PO; hb 16:49 Follow up: Response: Medication administered at discharge. hb Disposition: 04/13/18 16:15 Discharged to Home. Impression: Other chest pain, Fall due to bumping against object, Contusion of front wall of thorax, Acute upper respiratory infection, unspecified. - Condition is Stable. - Discharge Instructions: Chest Wall Pain, Fall Prevention in the Home, Upper Respiratory Infection, Adult, Chest Wall Pain, [id number], Upper Respiratory Infection, Adult, [id number], Fall Prevention in the Home, [id number]-[id number]. - Prescriptions for Tylenol- Codeine #3 300-30 mg Oral Tablet - take 1 tablet by ORAL route every 6 hours As needed; 20 tablet. Zithromax Z- Joshua 250 mg Oral Tablet - take 1 tablet by ORAL route as directed for 5 days Day 1 - take two (2) tablets one time. Day 2, 3, 4 , 5 take one (1) tablet once daily.; 6 tablet. - Medication Reconciliation Form, Thank You Letter, Antibiotic Education, Prescription Opioid Use form. - Follow up: Private Physician; When: 2 - 3 days; Reason: Recheck today's complaints, Continuance of care, Re-evaluation by your physician. Follow up: Venkat Mead MD; When: 5 - 6 days; Reason: Recheck today's complaints, Re-evaluation by your physician. - Problem is new. - Symptoms have improved. Signatures: Dispatcher [employer] EDMS Bao Barreto RN RN sg Anderson, Corey, MD MD cha Hall, Patricia, RN RN ph Baxter, Heather, RN RN Corrections: (The following items were deleted from the chart) 16:16 16:15 04/13/2018 16:15 Discharged to Home. Impression: Other chest pain; Fall due to branden bumping against object; Contusion of front wall of thorax; Acute upper respiratory infection, unspecified. Condition is Stable. Discharge Instructions: Chest Wall Pain, Fall Prevention in the Home, Chest Wall Pain, [id number]-vx-[id number], Fall Prevention in the Home, Hefp-bc-[id number]. Prescriptions for Tylenol-Codeine #3 300-30 mg Oral Tablet - take 1 tablet by ORAL route every 6 hours As needed; 20 tablet. and Forms are Medication Reconciliation Form, Thank You Letter, Antibiotic Education, Prescription Opioid Use. Follow up: Private Physician; When: 2 - 3 days; Reason: Recheck today's complaints, Continuance of care, Re-evaluation by your physician. Problem is new. Symptoms have improved. [facility] 16:51 16:16 04/13/2018 16:15 Discharged to Home. Impression: Other chest pain; Fall due to hb bumping against object; Contusion of front wall of thorax; Acute upper respiratory infection, unspecified. Condition is Stable. Discharge Instructions: Chest Wall Pain, Fall Prevention in the Home, Chest Wall Pain, Wmry-dw-Oowq, Fall Prevention in the Home, Yicp-ia-Iojn. Prescriptions for Tylenol-Codeine #3 300-30 mg Oral Tablet - take 1 tablet by ORAL route every 6 hours As needed; 20 tablet. and Forms are Medication Reconciliation Form, Thank You Letter, Antibiotic Education, Prescription Opioid Use. Follow up: Private Physician; When: 2 - 3 days; Reason: Recheck today's complaints, Continuance of care, Re-evaluation by your physician. Follow up: Venkat Mead; When: 5 - 6 days; Reason: Recheck today's complaints, Re-evaluation by your physician. Problem is new. Symptoms have improved. branden
[2018-04-13] MEDS ORDERED: AZITHROMYCIN 250 MG TAB ONE (16:50)
[2018-04-13 20:13] LABS: Urine Blood NEGATIVE (NEG); Urine Glucose NEGATIVE (NEG); Urine Protein NEGATIVE (NEG); Urine Specific Gravity 1.015 (1.005-1.030)
== END 2018-04-13 16:51 | disposition home or self-care (01) ==
LOC: ER 11:34
DX: S20.219A Contusion of unspecified front wall of thorax, initial encounter (principal); J06.9 Acute upper respiratory infection, unspecified; W18.00XA Striking against unspecified object with subsequent fall, initial encounter; Y93.9 Activity, unspecified; Y92.9 Unspecified place or not applicable
CPT/HCPCS: 36415; 71045; 71260; 74177; 80048; 80076; 81003; 83690; 83735; 83880; 84484; 85025; 85610; 87040; 87086; 87088; 93005; 99285; Q9967